=== PATIENT | male | born 2000 | race Caucasian/White ===

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

== ENCOUNTER 2022-04-19 17:48 | Emergency (ER) | payer OTHER ==
[~2022-04-19] VITALS: Ht 170.2 cm; Wt 81.8 kg
[2022-04-19] MEDS ORDERED: TETANUS-DIPTH-ACEL PERTUSSIS 0.5ML SYR Tdap IM ONE (22:00)
[2022-04-19 22:10] VITALS: BP 129/86
[2022-04-19 22:25] LABS: Salicylate < 1.7 mg/dL (2.8-20.0)
[2022-04-19 22:26] LABS: Acetaminophen < 2.0 ug/mL (10-30)
[2022-04-19 22:36] LABS: Alanine Aminotransferase 112 U/L (16-61); Albumin 3.7 g/dL (3.4-5.0); Anion Gap 6 (5-15); BUN/Creatinine Ratio 8.9; Blood Alcohol < 3.0 mg/dL (0-5); Blood Urea Nitrogen 8 mg/dL (7-18); Calcium 9.1 mg/dL (8.5-10.1); Carbon Dioxide 27 mmol/L (21-32); Chloride 107 mmol/L (98-107); GFR African American 138 mL/min; GFR Non-African American 114 mL/min; Glucose 94 mg/dL (74-106); Potassium 4.4 mmol/L (3.5-5.1); Sodium 140 mmol/L (136-145)
[2022-04-19 22:41] LABS: Alcohol, Urine < 3.0 mg/dL (0-10); Amphetamine Screen, Urine NEGATIVE (NEGATIVE); Barbiturate Scree,Urine NEGATIVE (NEGATIVE); Benzodiazephine Screen, Urine NEGATIVE (NEGATIVE); Cannabinoid Screen, Urine NEGATIVE (NEGATIVE); Cocaine Screen, Urine NEGATIVE (NEGATIVE); Opiate Scree,Urine NEGATIVE (NEGATIVE); Phencyclidine Screen, Urine NEGATIVE (NEGATIVE)
[2022-04-19 22:43] LABS: Alkaline Phosphatase 93 U/L (45-117); Aspartate Aminotransferase 53 U/L (15-37); Bilirubin, Total 0.4 mg/dL (0.2-1.0); Total Protein 8.2 g/dL (6.4-8.2)
== END 2022-04-19 23:12 | disposition home or self-care (01) ==
LOC: EDBD 17:48 → ER 17:48
DX: S41.112A Laceration without foreign body of left upper arm, initial encounter (principal); F41.9 Anxiety disorder, unspecified; F32.9 Major depressive disorder, single episode, unspecified; J45.909 Unspecified asthma, uncomplicated; W26.9XXA Contact with unspecified sharp object(s), initial encounter; Y93.89 Activity, other specified; Y92.89 Other specified places as the place of occurrence of the external cause; Y99.8 Other external cause status
CPT/HCPCS: 36415; 80053; 80307; 80320; 80329; 99283; J7030